=== PATIENT | male | born 1985 | race African-American/Black ===

== ENCOUNTER 2022-05-09 04:21 | Day surgery (SDC) | payer OTHER ==
[2022-05-04 14:46] VITALS: BMI 28.3
[2022-05-09 11:37] VITALS: RESP 18
[2022-05-09] MEDS ORDERED: MIDAZOLAM HCL 2 MG/2 ML SINGLE DOSE VIAL ONE (13:30)
[2022-05-09 15:06] VITALS: BP 110/70; PULSE 55; TEMP 97.2
== END 2022-05-09 14:50 | disposition home or self-care (01) ==
LOC: JASU-SURG 04:21
PROVIDERS: ATTEND Urology
PROC: 0TF3XZZ Fragmentation in Right Kidney Pelvis, External Approach (ICD-10-PCS; principal; 2022-05-09 12:30)
DX: N20.0 Calculus of kidney (principal)